=== PATIENT | male | born 1960 | race Caucasian/White ===

== ENCOUNTER 2018-07-12 09:32 | Inpatient (IN) | payer BC, OTHER ==
[~2018-07-12] VITALS: Ht 177.8 cm; Wt 76.0 kg
[~2018-07-12 09:32] MED LIST: ACET1TAB64 PO; ACETAMINOPHEN 500 MG TABLET ONE; ACETAMINOPHEN 500 MG TABLET PO ONE; BACITRACIN 50,000 UNIT ONE; BUPIVACAINE 0.25% ONE; BUPIVACAINE/PF-EPI 0.5% 1:200K ONE; CEFAZOLIN 1,000 MG ONE; DEXAMETHASONE 4 MG/ML, 1ML ONE; FENTANYL PF 100 MCG/2ML ONE; FENTANYL PF 250 MCG/5ML ONE; GABAPENTIN 300 MG CAPSULE ONE; GABAPENTIN 300 MG CAPSULE PO ONE; LACTATED RINGERS 1,000 ML IV SCH; LIDOCAINE-MPF 2% ,5ML ONE; MIDAZOLAM 1 MG/ML, 2ML ONE; PHENYLEPHRINE 10 MG/ML ONE; PROPOFOL 10 MG/ML, 20ML ONE; PROPOFOL 50 ML ONE; SODIUM CHLORIDE 0.9% PF 10ML ONE; SUCCINYLCHOLINE 20 MG/ML, 10ML ONE; THROMBIN 5,000 UNIT VIAL TP ONE
[2018-07-12 09:41] VITALS: BP 135/97
[2018-07-12] MEDS ORDERED: ONDANSETRON 2MG/ML, 2ML ONE (10:10)
[2018-07-12] MEDS ORDERED: KETAMINE 10 MG/ML, 20ML ONE (10:10)
[2018-07-12] MEDS ORDERED: LORazepam 2 MG/ML, 1ML IVPush PRN (11:00)
[2018-07-12] MEDS ORDERED: MORPHINE SULFATE 4 MG/ML, 1ML IVPush PRN (11:00)
[2018-07-12] MEDS ORDERED: HYDROmorphone 2 MG/ML, 1ML IVPush PRN (11:00)
[2018-07-12] MEDS ORDERED: MEPERIDINE/PF 25MG/0.5ML IVPush PRN (11:00)
[2018-07-12] MEDS ORDERED: METOPROLOL 1 MG/ML, 5ML IV PRN (11:00)
[2018-07-12] MEDS ORDERED: OXYcodone 5 MG/5 ML ORAL.SOL UDC PO PRN (11:00)
[2018-07-12] MEDS ORDERED: hydrALAzine 20 MG/ML, 1ML IV PRN (11:00)
[2018-07-12] MEDS ORDERED: METOCLOPRAMIDE 5 MG/ML, 2ML IV PRN (11:00)
[2018-07-12] MEDS ORDERED: PROPOFOL 50 ML ONE ×4 (11:02→14:28)
[2018-07-12] MEDS ORDERED: BUPIVACAINE LIPOSOME/PF 20ML INFIL ONE (11:30)
[2018-07-12] MEDS ORDERED: BUPIVACAINE/PF-EPI 0.5% 1:200K ONE (13:29)
[2018-07-12] MEDS ORDERED: BUPIVACAINE/PF-EPI 0.5% 1:200K INFIL ONE (13:55)
[2018-07-12] MEDS ORDERED: FENTANYL PF 100 MCG/2ML EPIDPUSH ONE (14:19)
[2018-07-12] MEDS ORDERED: BUPIVACAINE/PF 0.25% EPIDPUSH ONE (14:19)
[2018-07-12] MEDS ORDERED: FENTANYL PF 100 MCG/2ML ONE ×2 (14:28→16:09)
[2018-07-12] MEDS ORDERED: OXYcodone 5 MG/5 ML ORAL.SOL UDC ONE (16:10)
[2018-07-12] MEDS: FENTANYL PF 100 MCG/2ML IV PRN ×2 (16:22→16:40)
[2018-07-12] MEDS ORDERED: HYDROcodone/APAP 10/325 MG TABLET PO PRN (18:30)
[2018-07-12] MEDS ORDERED: DIPHENHYDRAMINE 25 MG CAPSULE PO PRN (18:30)
[2018-07-12] MEDS ORDERED: HYDROcodone/APAP 5/325 TABLET PO PRN (18:30)
[2018-07-12] MEDS ORDERED: LABETALOL 5MG/ML, 20ML IV PRN (18:30)
[2018-07-12] MEDS ORDERED: OXYcodone IR 5MG TABLET PO PRN (18:30)
[2018-07-12] MEDS ORDERED: DIPHENHYDRAMINE 50 MG/ML, 1ML IVPush PRN (18:30)
[2018-07-12] MEDS ORDERED: ONDANSETRON 2MG/ML, 2ML IV PRN (18:30)
[2018-07-12] MEDS: DEXAMETHASONE 4 MG/ML, 1ML IV SCH (18:47)
[2018-07-12] MEDS: CEFAZOLIN PMX 1GM/50ML 50 ML IVPB SCH (18:47)
[2018-07-12] MEDS: NS + 20MEQ KCL 1,000 ML IV SCH (18:47)
[2018-07-12] MEDS ORDERED: BISACODYL 10 MG SUPP PR PRN (19:30)
[2018-07-12] MEDS ORDERED: MAGNESIUM HYDROXIDE 8%, 30ML UDC PO PRN (19:30)
[2018-07-12 19:47] VITALS: BP 139/97
[2018-07-12] MEDS: SENNA/DOCUSATE TABLET PO SCH (22:07)
[2018-07-12] MEDS: morphine SULFATE 10 MG/ML, 1ML IV PRN ×2 (22:07→22:38)
[2018-07-12] MEDS: METHOCARBAMOL 750 MG in DEXTROSE 5% 100 ML IV SCH (22:07)
[2018-07-12] MEDS: FAMOTIDINE 20 MG TABLET PO SCH (22:07)
[2018-07-13] MEDS: DEXAMETHASONE 4 MG/ML, 1ML IV SCH (00:04)
[2018-07-13 00:22] VITALS: BP 114/74
[2018-07-13] MEDS: METHOCARBAMOL 750 MG in DEXTROSE 5% 100 ML IV SCH ×2 (02:54→08:12)
[2018-07-13] MEDS: CEFAZOLIN PMX 1GM/50ML 50 ML IVPB SCH (02:54)
[2018-07-13] MEDS: morphine SULFATE 10 MG/ML, 1ML IV PRN ×2 (02:59→08:12)
[2018-07-13 03:45] VITALS: BP 105/63
[2018-07-13 05:57] LABS: ANION GAP 8 mmol/L (5-15); CALCIUM 8.4 mg/dL (8.5-10.1); CHLORIDE 108 mmol/L (98-107); CREATININE 0.98 mg/dL (0.7-1.3)
[2018-07-13 06:26] LABS: BASOPHILS % (AUTO) 0 % (0-1); EOSINOPHILS % (AUTO) 0 % (1-7); LYMPHOCYTES # (AUTO) 0.88 x10^3/uL (1-3.4); LYMPHOCYTES % (AUTO) 6 % (22-44); MD NO; MEAN CORPUSCULAR HEMOGLOBIN 32.3 pg (27.5-34.5); MEAN PLATELET VOLUME 7.5 fL (7.4-10.4); MONOCYTES # (AUTO) 0.35 x10^3/uL (0.2-0.8); MONOCYTES % (AUTO) 2 % (2-9); NEUTROPHILS # (AUTO) 14.94 x10^3/uL (1.8-6.8); NEUTROPHILS % (AUTO) 92 % (42-75); PLATELET COUNT 247 x10^3/uL (130-400); RED CELL DISTRIBUTION WIDTH 13.1 % (9.4-14.8)
[2018-07-13 07:32] VITALS: BP 120/74
[2018-07-13] MEDS: FAMOTIDINE 20 MG TABLET PO SCH ×2 (08:11→20:38)
[2018-07-13] MEDS: SENNA/DOCUSATE TABLET PO SCH ×2 (08:11→20:38)
[2018-07-13] MEDS: DOXYCYCLINE 100MG TABLET PO SCH ×2 (08:11→20:38)
[2018-07-13] MEDS: NS + 20MEQ KCL 1,000 ML IV SCH ×2 (08:12→18:06)
[2018-07-13] MEDS ORDERED: METHOCARBAMOL 750 MG TABLET PO PRN (11:00)
[2018-07-13] MEDS: HYDROcodone/APAP 10/325 MG TABLET PO PRN ×3 (11:40→20:38)
[2018-07-13 14:50] VITALS: BP 111/68
[2018-07-13 21:15] VITALS: BP 140/85
[2018-07-14] MEDS: HYDROcodone/APAP 10/325 MG TABLET PO PRN ×4 (00:53→12:58)
[2018-07-14 03:05] VITALS: BP 104/67
[2018-07-14] MEDS: NS + 20MEQ KCL 1,000 ML IV SCH (04:00)
[2018-07-14 07:09] VITALS: BP 125/78
[2018-07-14] MEDS: SENNA/DOCUSATE TABLET PO SCH (08:56)
[2018-07-14] MEDS: FAMOTIDINE 20 MG TABLET PO SCH (08:57)
[2018-07-14] MEDS: DOXYCYCLINE 100MG TABLET PO SCH (08:57)
[2018-07-14] MEDS ORDERED: METH750T87 PO (10:40)
[2018-07-14] MEDS ORDERED: HYDR-3622 PO (10:40)
[2018-07-14 13:02] VITALS: BP 132/83
== END 2018-07-14 13:28 | disposition home or self-care (01) | DRG 455 ==
LOC: ORIP 09:32 → 4NOR 17:41
PROVIDERS: ADMIT Neurological Surgery; ATTEND Neurological Surgery
PROC: 0SG00A0 Fusion of Lumbar Vertebral Joint with Interbody Fusion Device, Anterior Approach, Anterior Column, Open Approach (ICD-10-PCS; principal; 2018-07-14)
PROC: 0SG0071 Fusion of Lumbar Vertebral Joint with Autologous Tissue Substitute, Posterior Approach, Posterior Column, Open Approach (ICD-10-PCS; 2018-07-14)
PROC: 0SP304Z Removal of Internal Fixation Device from Lumbosacral Joint, Open Approach (ICD-10-PCS; 2018-07-14)
PROC: 0SB20ZZ Excision of Lumbar Vertebral Disc, Open Approach (ICD-10-PCS; 2018-07-14)
PROC: 4A11X4G Monitoring of Peripheral Nervous Electrical Activity, Intraoperative, External Approach (ICD-10-PCS; 2018-07-14)
DX: M48.062 Spinal stenosis, lumbar region with neurogenic claudication (principal); M54.16 Radiculopathy, lumbar region; M25.78 Osteophyte, vertebrae
CPT/HCPCS: 36415; 72100; 80048; 85025; C9290; G0378; J0690; J1100; J2250; J2405; J2704; J3010; J3480; J3490; J0330; J2270; J2370; J2800; J7120